=== PATIENT | male | born 1980 | race Caucasian/White ===

== ENCOUNTER 2024-11-19 13:30 | Outpatient (RCR) | payer OTHER, SELFPAY ==
--- NOTE | 2024-08-21 16:42 | OPREHPOC ---
Outpatient Therapy Plan of Care This is a Multidisciplinary Plan of Care that may contain components documented by all disciplines (PT, OT, and ST.) PT Problem 1 PT Problem #1 Knowledge Deficit PT Goal 1 Goal / Goal Update *indep with HEP Target Visit 10 PT Problem 2 PT Problem #2 Pain PT Goal 1 Goal / Goal Update *pain rating of 3/10 at worst Target Visit 10 PT Problem 3 PT Problem #3 Impaired Range of Motion PT Goal 1 Goal / Goal Update * active L knee flexion to 75' Target Visit 10 PT Problem 4 PT Problem #4 Impaired Strength PT Goal 1 Goal / Goal Update * increase quad strength, pt able to perform supine SLR x 20 reps Target Visit 10 PT Problem 5 PT Problem #5 Impaired Functional Mobility PT Goal 1 Goal / Goal Update * pt ambulate with knee brace intact, without assistive device Target Visit 10
--- NOTE | 2024-08-21 16:42 | PTOPEVAL1 ---
Assessment and note entered by Rosanna Thornton PT Evaluation Information Assessment Status Evaluation ICD-10 Condition Codes (PT) Abnormalities of gait and mobility R26.9,Weakness R53.1,Encounter for other orthopedic aftercare Z47 .89 Other ICD-10 Condition Codes ( Z98.890 s/p L patellar tendon repair PT) Onset 06-11-24 Subjective Information order for PT is dated 07-10-24; pt reports he had issues with insurance and had to wait until had coverage again; saw yesterday and they were pleased with his knee ROM and need to strengthen L quad; have been walking in the house without the crutches, use the crutches when out of the house wearing the L knee brace all the time, set at 0' activity: have full flight of stairs at home; live with his grand father; he stays on the main level of the home; indep with in home tasks; have not gone on the stairs; not working, previous work as a cook; Reported Pain Level Pain Score 0: Self Report Additional Pain Score Comments pain range in the past few days 0-5/10 wearing hinged knee brace, locked at 0' for walking decrease pain: meloxicam PRN, ice, massage over knee increase pain: time up/walking 10-15 minutes sleeping is OK Assessment PT Clinical Summary Elvin is s/p L patellar tendon repair in May. Due to insurance issues, he has not attended therapy post op. He is using knee brace and crutches and has not really been doing much exercises--not sure what to do. Reports walking and standing tolerance about 10-15 minutes due to pain. Self assessment LE functional scale rating of 55% limitation in activity level. With the evaluation: L knee ROM is 0-40'; decrease strength of L hip and knee--unable to perform SLR; Gait is WBAT on L with knee brace locked at 0' with crutches. He has edema over L knee, lower leg and ankle. Skilled PT services are indicated for modalities to decrease strength and edema; therapeutic exercises to increase L knee ROM and strength per protocol, with education for HEP, gait training and progression of activity. Plan of Care Interventions Electrical Stimulation,Gait Training,Hot Pack/Cold Pack,Intermittent Compression Pump,Manual Therapy ,Neuro Re-education,Patient/Caregiver Education, Therapeutic Activities,Therapeutic Exercise PT Services Indicated Yes Treatment Frequency and 2x/wk for 10visits Duration These treatments will address the objective and functional deficits as defined above. The patient will be advanced safely and appropriately in order for the patient to progress towards his/her prior level of function. Additional exercises will be introduced and as well as a comprehensive home exercise program upon discharge, if needed, ?to ensure carryover of functional gains achieved in the clinic. This treatment plan has been reviewed and agreement upon by the patient.
--- NOTE | 2024-08-26 12:04 | PCPTNOTE ---
Pt canceled due to illness.
--- NOTE | 2024-09-17 12:56 | PCPTNOTE ---
Canceled due to back pain. AKS
--- NOTE | 2024-09-22 14:41 | OPREHPOC ---
Outpatient Therapy Plan of Care This is a Multidisciplinary Plan of Care that may contain components documented by all disciplines (PT, OT, and ST.) PT Problem 1 PT Problem #1 Knowledge Deficit PT Goal 1 Goal / Goal Update *indep with HEP 09-22-24 progress goal met continue to progress HEP and education of protocol Target Visit 19 PT Problem 2 PT Problem #2 Pain PT Goal 1 Goal / Goal Update *pain rating of 3/10 at worst 09-22-24 progress goal not met, increase pain rating to 6/10 continue towards goal Target Visit 19 PT Problem 3 PT Problem #3 Impaired Range of Motion PT Goal 1 Goal / Goal Update * active L knee flexion to 75' 09-22-24 progress goal not met, improved to 70' active-assisted NEW GOAL: * active knee flexion 90' Target Visit 19 PT Problem 4 PT Problem #4 Impaired Strength PT Goal 1 Goal / Goal Update * increase quad strength, pt able to perform supine SLR x 20 reps 09-22-24 progress goal met NEW GOAL: 1* supine SLR with 2# ankle wt x 15 reps 2* standing hip exercises with 2# ankle wt x 15 reps 3* standing bilateral mini squats to ~45' x 10 reps Target Visit 19 PT Problem 5 PT Problem #5 Impaired Functional Mobility PT Goal 1 Goal / Goal Update * pt ambulate with knee brace intact, without assistive device 09-22-24 progress goal not met--protocol for use of crutches to week 16 continue towards goal Target Visit 19
--- NOTE | 2024-09-22 14:41 | PTOPPROG ---
Assessment and note entered by Rosanna Thornton, PT Assessment Status Progress ICD-10 Condition Codes (PT) Abnormalities of gait and mobility R26.9,Weakness R53.1,Encounter for other orthopedic aftercare Z47 .89 Other ICD-10 Condition Codes ( Z98.890 s/p L patellar tendon repair PT) Onset 06-11-24 Subjective Information knee is doing good; doing the exercises at home; wearing the brace all the time except with showering; see 10-01-24, had to reschedule appt from last week due to back hurting too bad; PAIN: range in the past week 0-6/10; increase pain: walking and up more over the weekend--about 1 & 1/2 hour of shopping and moving around decrease pain: sit, rest, ice, meloxicam Assessment PT Clinical Summary Elvin has received 8 PT sessions. He called/ canceled 2 appointments. Today he reports: pain range of 0-6/10; standing /walking tolerance of 1 & 1/2 hours; self assessment LE functional scale rating of 55% limitation in activity level; ambulation with the L LE WBAT with the knee brace locked at 0' with crutches; L knee: supine assisted flexion 70'. The goals were partially met. Continue PT treatment, per protocol. Plan of Care Interventions Electrical Stimulation,Gait Training,Hot Pack/Cold Pack,Intermittent Compression Pump,Manual Therapy ,Neuro Re-education,Patient/Caregiver Education, Therapeutic Activities,Therapeutic Exercise PT Services Indicated Yes Treatment Frequency and 1-2x/wk for 11 visits Duration These treatments will address the objective and functional deficits as defined above. The patient will be advanced safely and appropriately in order for the patient to progress towards his/her prior level of function. Additional exercises will be introduced and as well as a comprehensive home exercise program upon discharge, if needed, ?to ensure carryover of functional gains achieved in the clinic. This treatment plan has been reviewed and agreement upon by the patient.
--- NOTE | 2024-11-05 14:16 | PCPTNOTE ---
Canceled watching over grandparent that became sick. He did not want to spread flu if contagious. ZO
--- NOTE | 2024-11-12 14:10 | PCPTNOTE ---
No call no show. AKS
--- NOTE | 2024-11-19 14:34 | OPREHPOC ---
Outpatient Therapy Plan of Care This is a Multidisciplinary Plan of Care that may contain components documented by all disciplines (PT, OT, and ST.) PT Problem 1 PT Problem #1 Knowledge Deficit PT Goal 1 Goal / Goal Update *indep with HEP 09-22-24 progress goal met continue to progress HEP and education of protocol 11-19-24 progress goal met continue towards, to progress HEP Target Visit 27 PT Problem 2 PT Problem #2 Pain PT Goal 1 Goal / Goal Update *pain rating of 3/10 at worst 09-22-24 progress goal not met, increase pain rating to 6/10 continue towards goal 11-19-24 progress goal met NEW GOAL * pain rating 2/10 at worst, with increased activity level Target Visit 27 PT Problem 3 PT Problem #3 Impaired Range of Motion PT Goal 1 Goal / Goal Update * active L knee flexion to 75' 09-22-24 progress goal not met, improved to 70' active-assisted NEW GOAL: * active knee flexion 90' 11-19-24 progress goal not met, improved to 80' continue towards goal Target Visit 27 PT Problem 4 PT Problem #4 Impaired Strength PT Goal 1 Goal / Goal Update * increase quad strength, pt able to perform supine SLR x 20 reps 09-22-24 progress goal met NEW GOAL: 1* supine SLR with 2# ankle wt x 15 reps 2* standing hip exercises with 2# ankle wt x 15 reps 3* standing bilateral mini squats to ~45' x 10 reps 11-19-24 progress goals met NEW GOALS: 1* supine SLR with 4# ankle wt x 10 reps 2* pt perform 4 step up forward x 10 reps with good control 3* single leg standing L x 20 seconds with good stability Target Visit 27 PT Problem 5 PT Problem #5 Impaired Functional Mobility PT Goal 1 Goal / Goal Update * pt ambulate with knee brace intact, without assistive device 09-22-24 progress goal not met--protocol for use of crutches to week 16 continue towards goal 11-19-24 progress goal met NEW GOAL: 1* 2 minute walking test distance of 320' 2* up/down 12 steps with alternating step pattern and 1 hand rail use 3* pt report NO longer using 1 crutch for walking distances in community Target Visit 27
--- NOTE | 2024-11-19 14:34 | PTOPPROG ---
Assessment and note entered by Rosanna Thornton, PT Assessment Status Progress ICD-10 Condition Codes (PT) Abnormalities of gait and mobility R26.9,Weakness R53.1,Encounter for other orthopedic aftercare Z47 .89 Other ICD-10 Condition Codes ( Z98.890 s/p L patellar tendon repair PT) Onset 06-11-24 Subjective Information knee is better, but still tight; saw last week, said to continue therapy, was pleased with how my knee was doing; is to stay on the protocol, knee knee brace at 0-40 with walking and when sitting down, can unlock it to let knee bend; walk without anything or 1 crutch; doing the exercises 2-3 x/ day; Assessment PT Clinical Summary Jaison has received a total of 17 PT sessions. Today reports pain range of 0-2/10; self assessment with LE functional scale of 41% limitation in activity level; reported walking/ standing tolerance of 1 hour, then have to sit down due to knee pain; is walking without an assistive device and knee brace on L 0-40' motion; 2 minute walking test distance of 230'; L knee ROM active 0-80' and with passive stretch 85' gross strength of L hip 4/5 and knee 4-/5 in available ROM; education for HEP and gait pattern The goals were partially achieved. Continue PT, following protocol per orders. Plan of Care Interventions Electrical Stimulation,Gait Training,Hot Pack/Cold Pack,Intermittent Compression Pump,Manual Therapy ,Neuro Re-education,Patient/Caregiver Education, Therapeutic Activities,Therapeutic Exercise PT Services Indicated Yes Treatment Frequency and 1-2x/wk for 10 visits Duration These treatments will address the objective and functional deficits as defined above. The patient will be advanced safely and appropriately in order for the patient to progress towards his/her prior level of function. Additional exercises will be introduced and as well as a comprehensive home exercise program upon discharge, if needed, ?to ensure carryover of functional gains achieved in the clinic. This treatment plan has been reviewed and agreement upon by the patient.
== END 2024-11-19 23:59 | disposition home or self-care (01) ==
LOC: ANHPT 13:30
PROVIDERS: PCP Internal Medicine; Visit Provider Physician Assistant
DX: R26.9 Unspecified abnormalities of gait and mobility (principal); R53.1 Weakness; Z98.890 Other specified postprocedural states; Z47.89 Encounter for other orthopedic aftercare
CPT/HCPCS: 97016; 97110; 97116; 97140; 97161; 97530

== ENCOUNTER 2025-02-11 13:00 | Outpatient (RCR) | payer OTHER, SELFPAY ==
--- NOTE | 2024-11-23 11:42 | PCPTNOTE ---
This treatment is being continued from visit number [id number] Please see documentation on both accounts to view progress. Completed interventions, outcomes, and problems have been marked as Inactive to facilitate the copying of the Care plan routine for recurring accounts.
--- NOTE | 2024-12-01 11:04 | PCPTNOTE ---
This treatment is being continued from visit number [id number] Please see documentation on both accounts to view progress. Completed interventions, outcomes, and problems have been marked as Inactive to facilitate the copying of the Care plan routine for recurring accounts.
--- NOTE | 2024-12-01 11:05 | PCPTNOTE ---
This treatment is being continued on visit number [id number] Please see documentation on both accounts to view progress. Completed interventions, outcomes, and problems have been marked as Inactive to facilitate the copying of the Care plan routine for recurring accounts.
--- NOTE | 2024-12-31 14:29 | OPREHPOC ---
Outpatient Therapy Plan of Care This is a Multidisciplinary Plan of Care that may contain components documented by all disciplines (PT, OT, and ST.) PT Problem 1 PT Problem #1 Knowledge Deficit PT Goal 1 Goal / Goal Update *indep with HEP 09-22-24 progress goal met continue to progress HEP and education of protocol 11-19-24 progress goal met continue towards, to progress HEP Target Visit 27 Progress Met PT Goal 2 Goal / Goal Update 12-31-24 progress * progression of HEP per protocol Target Visit 33 PT Problem 2 PT Problem #2 Pain PT Goal 1 Goal / Goal Update *pain rating of 3/10 at worst 09-22-24 progress goal not met, increase pain rating to 6/10 continue towards goal 11-19-24 progress goal met NEW GOAL * pain rating 2/10 at worst, with increased activity level Target Visit 27 Progress Not Met PT Goal 2 Goal / Goal Update 12-31-24 progress * pt report pain rating at worst of 3/10 Target Visit 33 PT Problem 3 PT Problem #3 Impaired Range of Motion PT Goal 1 Goal / Goal Update * active L knee flexion to 75' 09-22-24 progress goal not met, improved to 70' active-assisted NEW GOAL: * active knee flexion 90' 11-19-24 progress goal not met, improved to 80' continue towards goal Target Visit 27 Progress Met PT Goal 2 Goal / Goal Update 12-22-24 progress * active L knee flexion 120' Target Visit 33 PT Problem 4 PT Problem #4 Impaired Strength PT Goal 1 Goal / Goal Update * increase quad strength, pt able to perform supine SLR x 20 reps 09-22-24 progress goal met NEW GOAL: 1* supine SLR with 2# ankle wt x 15 reps 2* standing hip exercises with 2# ankle wt x 15 reps 3* standing bilateral mini squats to ~45' x 10 reps 11-19-24 progress goals met NEW GOALS: 1* supine SLR with 4# ankle wt x 10 reps 2* pt perform 4 step up forward x 10 reps with good control 3* single leg standing L x 20 seconds with good stability Target Visit 27 Progress Met PT Goal 2 Goal / Goal Update 12-22-24 progress L LE: 1* single leg standing x 30 seconds with good stability 2* single leg PF with 1 UE support x 10 reps 3* single leg small squat with 1 UE support x 10 reps 4* prone hip extension with 2# wt x 10 reps 5* side lying hip adduction with 3# wt x 10 reps Target Visit 33 PT Problem 5 PT Problem #5 Impaired Functional Mobility PT Goal 1 Goal / Goal Update * pt ambulate with knee brace intact, without assistive device 09-22-24 progress goal not met--protocol for use of crutches to week 16 continue towards goal 11-19-24 progress goal met NEW GOAL: 1* 2 minute walking test distance of 320' 2* up/down 12 steps with alternating step pattern and 1 hand rail use 3* pt report NO longer using 1 crutch for walking distances in community 12-22-24 progress met goals 1,3 Target Visit 27 Progress Partially Met PT Goal 2 Goal / Goal Update 12-22-24 progress 1* pt up/down 12 steps with alternating step pattern and without hand railing 2* pt ambulate with good step through pattern on L 3* 2 minute walking test distance of 425', to improve community ambulation Target Visit 33
--- NOTE | 2024-12-31 14:30 | PTOPPROG ---
Assessment and note entered by Rosanna Thornton, PT Assessment Status Progress ICD-10 Condition Codes (PT) Abnormalities of gait and mobility R26.9,Weakness R53.1,Encounter for other orthopedic aftercare Z47 .89 Other ICD-10 Condition Codes ( Z98.890 s/p L patellar tendon repair PT) Onset 06-11-24 Subjective Information problems keeping the knee brace up--velcro is shot and slides down all the time; knee is not hurting, starting to walk more when at the store, bending knee better; am driving now and can get in/out of the car without any troubles; standing to take shower now; doing cleaning and home chores now; am doing all the exercises at home; PAIN: range in the past week 0-7/10; up to 7/10 with walking and up on feet for 3 hours over the 25 December hol weekend Assessment PT Clinical Summary Jaison has received 25 PT sessions. He is at week 28 post op, continues to use the knee brace locked at 0-70' with walking and does not use an assistive device. Self assessment functional score of 36% limitation in activity level. With today's assessment: pain range of 0-7/10; most of the time, during daily activity does not have any pain, but up to 7/10 with 3 hours of activity on his feet; single leg standing L is 20 seconds with good stability; increase strength with mat exercises: using 4# ankle wt for supine SLR and side lying hip abduction x 20 reps; 2 minute walking test distance of 320'; progression of exercises per protocol; L knee active ROM: 0-110'. The goals were partially achieved. Continue PT. Progression of activity per protocol . Plan of Care Interventions Electrical Stimulation,Gait Training,Hot Pack/Cold Pack,Intermittent Compression Pump,Manual Therapy ,Neuro Re-education,Patient/Caregiver Education, Therapeutic Activities,Therapeutic Exercise PT Services Indicated Yes Treatment Frequency and 1-2x/wk for 8 visits Duration These treatments will address the objective and functional deficits as defined above. The patient will be advanced safely and appropriately in order for the patient to progress towards his/her prior level of function. Additional exercises will be introduced and as well as a comprehensive home exercise program upon discharge, if needed, ?to ensure carryover of functional gains achieved in the clinic. This treatment plan has been reviewed and agreement upon by the patient.
--- NOTE | 2025-01-19 13:36 | PCPTNOTE ---
Pt called and canceled todays visit. Pt will be here next scheduled appt. per front office. AKS
--- NOTE | 2025-02-11 13:52 | OPREHPOC ---
Outpatient Therapy Plan of Care This is a Multidisciplinary Plan of Care that may contain components documented by all disciplines (PT, OT, and ST.) PT Problem 1 PT Problem #1 Knowledge Deficit PT Goal 1 Goal / Goal Update *indep with HEP 09-22-24 progress goal met continue to progress HEP and education of protocol 11-19-24 progress goal met continue towards, to progress HEP Target Visit 27 Progress Met PT Goal 2 Goal / Goal Update 12-31-24 progress * progression of HEP per protocol 02-11-25 d/c goal met Target Visit 33 Progress Met PT Problem 2 PT Problem #2 Pain PT Goal 1 Goal / Goal Update *pain rating of 3/10 at worst 09-22-24 progress goal not met, increase pain rating to 6/10 continue towards goal 11-19-24 progress goal met NEW GOAL * pain rating 2/10 at worst, with increased activity level Target Visit 27 Progress Not Met PT Goal 2 Goal / Goal Update 12-31-24 progress * pt report pain rating at worst of 3/10 02-11-25 d/c goal met Target Visit 33 Progress Met PT Problem 3 PT Problem #3 Impaired Range of Motion PT Goal 1 Goal / Goal Update * active L knee flexion to 75' 09-22-24 progress goal not met, improved to 70' active-assisted NEW GOAL: * active knee flexion 90' 11-19-24 progress goal not met, improved to 80' continue towards goal Target Visit 27 Progress Met PT Goal 2 Goal / Goal Update 12-22-24 progress * active L knee flexion 120' 02-11-25 d/c goal met Target Visit 33 Progress Met PT Problem 4 PT Problem #4 Impaired Strength PT Goal 1 Goal / Goal Update * increase quad strength, pt able to perform supine SLR x 20 reps 09-22-24 progress goal met NEW GOAL: 1* supine SLR with 2# ankle wt x 15 reps 2* standing hip exercises with 2# ankle wt x 15 reps 3* standing bilateral mini squats to ~45' x 10 reps 11-19-24 progress goals met NEW GOALS: 1* supine SLR with 4# ankle wt x 10 reps 2* pt perform 4 step up forward x 10 reps with good control 3* single leg standing L x 20 seconds with good stability Target Visit 27 Progress Met PT Goal 2 Goal / Goal Update 12-22-24 progress L LE: 1* single leg standing x 30 seconds with good stability 2* single leg PF with 1 UE support x 10 reps 3* single leg small squat with 1 UE support x 10 reps 4* prone hip extension with 2# wt x 10 reps 5* side lying hip adduction with 3# wt x 10 reps 02-11-25 d/c goals all met, except #5, perform without ankle wt Target Visit 33 Progress Partially Met PT Problem 5 PT Problem #5 Impaired Functional Mobility PT Goal 1 Goal / Goal Update * pt ambulate with knee brace intact, without assistive device 09-22-24 progress goal not met--protocol for use of crutches to week 16 continue towards goal 11-19-24 progress goal met NEW GOAL: 1* 2 minute walking test distance of 320' 2* up/down 12 steps with alternating step pattern and 1 hand rail use 3* pt report NO longer using 1 crutch for walking distances in community 12-22-24 progress met goals 1,3 Target Visit 27 Progress Partially Met PT Goal 2 Goal / Goal Update 12-22-24 progress 1* pt up/down 12 steps with alternating step pattern and without hand railing 2* pt ambulate with good step through pattern on L 3* 2 minute walking test distance of 425', to improve community ambulation 02-11-25 d/c goals 2,3 met; #1 partially met, achieved with alternating pattern up but down with single step pattern Target Visit 33 Progress Partially Met
--- NOTE | 2025-02-11 13:52 | PTOPDC ---
Assessment and note entered by Rosanna Thornton, PT Assessment Status Discharge ICD-10 Condition Codes (PT) Abnormalities of gait and mobility R26.9,Weakness R53.1,Encounter for other orthopedic aftercare Z47 .89 Other ICD-10 Condition Codes ( Z98.890 s/p L patellar tendon repair PT) Onset 06-11-24 Subjective Information feel like knee is doing good; wearing the brace when going out and walking but not in the house; last time saw the dr, was released from dr and did not have any restrictions. Ready to be done with therapy and go on his own. Reported Pain Level Pain Score 0: Self Report Additional Pain Score Comments no pain in the knee since December; Assessment PT Clinical Summary Jaison has received 32 PT sessions. With today's assessment: reports No pain for the past month; self rating with LE functional scale of 16% limitation in activity level; active ROM of knee 0-120'; 4+/5 strength of L hip and knee, except hip adduction is 4-/5; 2 minute walking test distance of 420'; good gait pattern, using the knee hinged brace PRN, most for distances and in community; on stairs, without hand railing: up with alternating step pattern and down with single step pattern. Education completed for HEP. The goals were achieved, except hip adduction strength and descending steps with alternate pattern. Discharge PT. He is to continue with the HEP and increase activity as tolerated. Plan of Care PT Services Indicated No
== END 2025-02-11 15:14 | disposition home or self-care (01) ==
LOC: ANHPT 13:00
PROVIDERS: PCP Internal Medicine; Visit Provider Physician Assistant
DX: Z47.89 Encounter for other orthopedic aftercare (principal); R26.9 Unspecified abnormalities of gait and mobility; R53.1 Weakness; Z98.890 Other specified postprocedural states
CPT/HCPCS: 97016; 97110; 97112; 97116; 97140; 97530